=== PATIENT | male | born 1970 | race Caucasian/White ===

== ENCOUNTER 2016-11-13 18:10 | Emergency (ER) | payer OTHER ==
[~2016-11-13] VITALS: Ht 188 cm; Wt 119.5 kg
[2016-11-13 18:13] VITALS: BP 154/104; PULSE 98; RESP 16; O2SAT 96
[2016-11-13 20:42] LABS: BASOPHILS % (AUTO) 0.2 % (0-3); EOSINOPHILS % (AUTO) 1.9 % (0-5); MONOCYTES % (AUTO) 5.2 % (4-12); Mean Corpuscular Hemoglobin 30.9 pg (27.0-35.0); Mean Corpuscular Volume 88.5 fL (81-100); NEUTROPHILS % (AUTO) 74.3 % (40-74); Platelet Count 268 bil/L (150-400)
--- NOTE | 2016-11-13 20:52 | ED.REPORT ---
HPI-Abd Pain M 40 and Over Date of Service Nov 13, 2016 ED Provider: Juan Manuel Barrios MD 46 year old male with no significant past medical history presents to the ER referred from the [facility] due to an elevated WBC of 20.3 yesterday. The patient was seen yesterday with complaints of acid reflux. At the time he had epigastric pain (non-burning) and vomited after eating. He had a similar episode 2 weeks ago. However, pt became more concerned 2 night ago when he developed shaking chills. After being seen at urgent care yesterday he feels much better. Currently he only reports a very mild RUQ pain that is present with bending over to tie his shoes. He has been able to tolerate PO today. Additionally, pt reports dry cough, but denies fever, nausea, dysuria, rash and any sick contacts. Denies recent travel out of the country. Nursing Notes Stated Complaint: HIGH WHITE BLOOD CELL COUNT Chief Complaint: General Complaint Nursing Notes Reviewed: Yes (Inbox, Novomer not reconciled) Allergies: Coded Allergies: No Known Allergies (Unverified , 11/13/16) General Time Seen by MD: 20:43 Chief Complaint Abdominal pain Hx Obtained From: Patient Arrived By: Walk-in Sudden in Onset?: No Onset Occurred: 2 days ago Symptom Duration: Since onset Location: : RUQ Quality: Painful Severity: Current: Moderate Associated with: Reports: Chills, Vomiting, Denies: Fever Exacerbated by: Certain positions Pertinent Negative: Relieved by nothing Recent Healthcare: Recent doctor visit Past Medical History Past Medical History Healthy Past Surgical History ACL R knee Social History Alcohol Use: "Social" Drug Use: Denies drug use Other Social History: Smokeless tobacco Ambulatory Status Independent Review of Systems Basic Review of Systems Eyes: Vision NL, No discharge ENT: Hearing NL, No pain, No nasal congestion, No pharyngeal pain Hematologic: No bleeding, No bruising Skin: No bruising, No rash, No itch Allergy / Immune: No allergy Neurologic: NL mental status, No weakness, No numbness Psychiatric: Normal thought content Constitutional: Reports: Chills, Denies: Fever Respiratory: Reports: Non-productive cough, Denies: Shortness of breath Cardiovascular: Denies: Chest pain GI: Reports: Abdominal pain, Vomiting, Denies: Diarrhea, Nausea Male: Denies Dysuria, Denies Flank pain Complete sys rev & neg: except as marked. Physical Exam Initial Vital Signs Vital Signs (First) Date Time Temp Pulse Resp B/P Pulse Ox O2 Delivery O2 Flow Rate FiO2 11/13/16 18:13 37.0 98 16 154/104 96 Room Air Initial VS: Reviewed, Vital signs abnormal Head / Eyes: Atraumatic, Normocephalic, PERRL ENT: Mucous membranes moist, Conjunctiva normal, No scleral icterus Neck: Supple, Non-tender, Full range of motion Extremities: Vascular intact, Neuro intact, No swelling, No tenderness Skin: Warm, Dry, No cyanosis Neurologic: Alert, Oriented, Nonfocal Psychiatric: Mood/affect normal, Behavior normal, Normal thought content General/Constitutional: Awake, Alert Respiratory / Chest: Breath sounds NL, Breath sounds = bilat, No respiratory distress, No rales, No rhonchi, No wheezing Cardiovascular: Heart rate NL, Regular rhythm, Heart sounds NL, No murmurs, Peripheral circulation NL Abdomen: Soft, No guarding, No rebound Pointing to RUQ but no tenderness. Back: Atraumatic, Inspection NL, Full range of motion Interpretation & Diagnostics Lab Results Interpretation Result Diagram: 11/13/16184911/13/161849 Test 11/13/16 18:50 11/13/16 21:29 White Blood Count 12.1th/mm3 (3.8-10.1) Red Blood Count 5.05mil/mm3 (4.40-5.80) Hemoglobin 15.6g/dL (13.8-17.2) Hematocrit 44.7% (41.0-50.0) Mean Corpuscular Volume 88.5fL (81-100) Mean Corpuscular Hemoglobin 30.9pg (27.0-35.0) Mean Corpuscular Hemoglobin Concent 34.9% (32.0-37.0) Red Cell Distribution Width 12.9% (12.3-15.4) Platelet Count 268bil/L (150-400) Neutrophils (%) (Auto) 74.3% (40-74) Lymphocytes (%) (Auto) 18.2% (14-46) Monocytes (%) (Auto) 5.2% (4-12) Eosinophils (%) (Auto) 1.9% (0-5) Basophils (%) (Auto) 0.2% (0-3) Hold Purple Top Tube Received (Received) Hold Blue Top Tube Received (Received) Sodium Level 138mEq/L (134-144) Potassium Level 3.9mEq/L (3.5-5.2) Chloride Level 101mEq/L (97-108) Carbon Dioxide Level 24mmol/L (18-29) Blood Urea Nitrogen 20mg/dL (6-24) Creatinine 0.99mg/dL (0.76-1.27) Estimat Glomerular Filtration Rate 86mL/min (>59) Glucose Level 91mg/dL (60-99) Lactic Acid Level 1.3mmol/L (0.4-2.0) Calcium Level 8.9mg/dL (8.5-10.1) Magnesium Level 2.0mg/dL (1.6-2.6) Total Bilirubin 0.7mg/dL (0.0-1.2) Aspartate Amino Transf (AST/SGOT) 39U/L (0-50) Alanine Aminotransferase (ALT/SGPT) 75U/L (0-44) Alkaline Phosphatase 75U/L (25-150) Troponin T < 0.010ug/L (0.0-0.011) Total Protein 7.2g/dL (6.4-8.4) Albumin 4.3g/dL (3.4-5.0) Lipase 22U/L (13-60) Hold Carlotta Top Tube Received (Received) Hold Davis Top Tube Received (Received) Hold Urine Received (Received) Lab Results Interpretation: CBC mild leukocytosis, improved from severely elevated white count yesterday CMP normal Blood cultures 2 pending Lactic acid normal Lipase US Abdomen: No specific acute abnormality. Fatty infiltration of the liver. General Lab Results Interp 1: Labs reviewed ECG Interpretation ECG Interpretation: Q waves in III and aVF. Time: 20:41 Interpreted by: ED physician Normal ECG Interpretation: Normal rate (75), Normal sinus rhythm, No acute ischemic changes X-Ray Chest Interpretation Chest Xray Interpretation: IMPRESSION: No acute process. Dictated by: Francis Thompson M.D. on 11/13/2016 at 21:30 View: AP & lat Interpretation / Wet Read by: Interpret - Radiologist Re-Eval/Medical Decision Med Decision/Clinical Course Is a 46-year-old healthy male without medical problems was sent in because blood work drawn yesterday revealed an elevated white count of 20.3 at the [facility] and the patient received a phone call to come into the emergency department. Patient does describe infectious symptoms starting 2 days ago with rigors, shaking chills and weakness, and so was seen yesterday in the clinic and had blood work drawn at that time. Results returned today, and he was told to come in. He reports however today he feels much better, he has no complaints and absent the phone call directing him to the ED he would not have come in and thought he was now doing fine. He does report a trace bit of right upper quadrant discomfort, it is mild, he has been able to eat and drink and has not by food. It Is minimal, and it is not reproducibly tender. He also does note he had 2 episodes of significant reflex over the past 2 weeks, and even vomited one the night before last, and then developed a little bit of a cough and chills that also started yesterday. He has had no other reflux symptoms, no other vomiting. He has no prior history of pneumonia. He is afebrile with department with normal vitals. His lungs are clear, and a chest x-ray is negative for infiltrate or hint of aspiration. he points to the right upper quadrant as the area was having this mild pain-but is not clinically tender and does not have a Carter's. Labs revealed a markedly improved leukocytosis. Blood cultures are drawn and are pending. The rest of his labs are nondiagnostic. A right upper quadrant ultrasound was negative for appreciable pathology. At this point I am not finding signs of serious bacterial etiology, surgical problem, or emergent condition has not been identified. The patient is nontoxic , clinically well, has no complaints and wishes to go home. I discussed with him the several options-from simply waiting for discharging, and waiting for the culture results, to include a single dose of antibiotics while waiting for culture results. He is entirely comfortable simply waiting for culture results and he feels well. Again that is entirely reasonable and appropriate given the absence of high risk findings. He is discharged, asymptomatic with good condition. Routine precautions and discharge instructions were reviewed with the patient and family. Source of Hx: Old records Time of Eval: 22:38 Re-Evaluation/Progress Note: Updated pt of labs, imaging and ECG results. Pt is feeling improved. Discussed plan for d/c and follow up. Pt understands and agrees with plan. All questions addressed. Differential Diagnosis: Negative: Abdominal aortic aneurysm, Abscess, Angina / AL, Bladder outlet obstruct, C. diff colitis, Cholangitis, Cholecystitis, Cholelithiasis, Dyspepsia, Esophageal rupture, Gastroenteritis, Gun shot wound abdomen, Mesenteric adenitis, Pancreatitis, Peritonitis, Pyelonephritis, Unstable angina Counseled Regarding: Diagnosis, Lab results, Need for follow-up, When/why to return to ED Discharge & Departure Primary Impression: Abdominal pain Abdominal location: upper abdomen Qualified Code: R10.10 - Upper abdominal pain, unspecified Additional Impression: Leukocytosis, unspecified Disposition: Home Vital Signs - All Vital Signs Date Time Temp Pulse Resp B/P Pulse Ox O2 Delivery O2 Flow Rate FiO2 11/13/16 18:13 37.0 98 16 154/104 96 Room Air )( All Prior VS Reviewed: Yes Condition: Improved 1. Your symptoms these past few days were certainly concerning for a potentially significant bacterial infection, and with your white blood count from yesterday returning high at 20, it was appropriate to have you come in for further evaluation. 2. Fortunately your tests in the emergency department are improved, and a dangerous source of infection was not identified. Your white count today was down to 12. No pneumonia or abnormality was appreciated near chest x-ray. He had an ultrasound to look at the gallbladder given the discomfort you are having in the right upper quadrant of the abdomen, but this revealed no signs of gallbladder or liver disease. Your EKG was normal. 3. We did send "blood cultures" today. This takes several days for final results and is looking for any bacteria grow in a ja dish. We will call you if anything is abnormal-and usually we can identify if bacteria is going within 24 hours, and often have the results in about 48 hours after that. You can call at any time for an update on the cultures: Call [phone] for results. 4. Activities and diet as tolerated. 5. If you develop new or worsening symptoms, return to the emergency department. Referrals: Sanchez Rick MD (PCP) Scribe Attestation Portions of this note were transcribed by Emilee Borjas. I, Dr. Barrios personally performed the history, physical exam and medical decision-making; I reviewed and confirmed the accuracy of the information in the transcribed note. Signed by Zoraida Rivas, 11/13/2016 at 22:56. copies to: Sanchez Rick MD, Matthew F MD Nov 13, 2016 20:52 Emilee Borjas Nov 13, 2016 20:59
[2016-11-13 21:01] LABS: TROPONIN T < 0.010 ug/L (0.0-0.011)
--- NOTE | 2016-11-13 21:32 | DRSVH ---
PROCEDURE: X-RAY CHEST, TWO VIEWS ([id number]) INDICATIONS: fever TECHNIQUE: 2 views of the chest were acquired. COMPARISON: None. FINDINGS: Surgical changes and devices: None. Lungs and pleura: No pleural effusions or pneumothorax. Lungs are clear. Mediastinum: Mediastinal contours are normal. Heart size is normal. Bones and chest wall: No suspicious bony abnormalities. Soft tissues appear unremarkable. IMPRESSION: No acute process. Dictated by: Francis Thompson M.D. on 11/13/2016 at 21:30 Approved by: Francis Thompson M.D. on 11/13/2016 at 21:31
[2016-11-13 23:37] VITALS: BP 114/76; PULSE 79; RESP 18; O2SAT 97
[2016-11-13 23:49] LABS: APPEARANCE,URINE CLEAR (CLEAR,HAZY); COLOR,URINE DARK YELLOW (YELLOW); OCCULT BLOOD,URINE NEGATIVE (NEGATIVE)
[2016-11-13 23:50] LABS: ICTOTEST,URINE POSITIVE (Negative)
--- NOTE | 2016-11-14 16:58 | DRSVH ---
PROCEDURE: US ABDOMEN INDICATIONS: RUQ pain TECHNIQUE: Real-time scanning was performed of the abdominal and retroperitoneal organs, with image documentatio n. COMPARISON: None. FINDINGS: Liver length: 18.42 cm Gallbladder Wall Thickness: 2.50 mm Spleen length: 10.91 cm Right kidney length: 11.69 cm Left kidney length: 11.80 cm Aorta(Proximal): 2.41 cm Aorta(Mid): 2.04 cm Aorta(Distal): 1.97 cm RCIA: 9.90 mm LCIA: 1.04 cm Liver: Liver is diffusely increased in echogenicity. No focal hepatic abnormalities identified. No rmal hepatic size. Gallbladder: Normal normal in appearance Biliary ducts: Intrahepatic bile ducts are non-dilated. Extrahepatic bile duct not visualized Pancreas: Visualized portions of the pancreas are sonographically normal. Spleen: Spleen is normal in size and homogeneous in echotexture. Kidneys: Kidneys are normal in size and echotexture. No hydronephrosis or nephrolithiasis. No rigoberto d masses. Aorta: Visualized aorta is normal in caliber at less than 3 cm. Iliacs: Proximal common iliac arteries are normal in caliber at less than 2.5 cm. IVC: Intrahepatic inferior vena cava is patent. Miscellaneous: No free abdominal fluid. IMPRESSION: 1. Increased hepatic echogenicity noted likely related to fatty infiltration of the liver but other s ources of hepatocellular disease cannot be excluded. Recommend clinical correlation. 2. Extrahepatic bile ducts not visualized. Note: These findings are concordant with the preliminary interpretation. Dictated by: Jalen CLARK Interpreted: Tasha Jacobson MD on 11/14/2016 at 8:55 Transcribed by: NELLIE on 11/14/2016 at 8:56 Approved by: Tasha Jacobson MD, PhD on 11/14/2016 at 16:57
== END 2016-11-13 23:38 | disposition home or self-care (01) ==
LOC: SED 18:10
DX: R10.11 Right upper quadrant pain (principal); D72.829 Elevated white blood cell count, unspecified; R05 Cough; K21.9 Gastro-esophageal reflux disease without esophagitis